=== PATIENT | male | born 1950 | race Caucasian/White ===

== ENCOUNTER 2021-03-19 19:31 | Emergency (ER) | payer MEDICARE, SELFPAY ==
[2021-03-19 19:40] VITALS: BP 135/85; PULSE 85; RESP 19; TEMP 36.8; O2SAT 96; BMI 29.4
[2021-03-19 19:42] VITALS: PULSE 67; RESP 18; O2SAT 98
--- NOTE | 2021-03-19 19:46 | ED.GENADULT ---
HPI - General Adult General Chief complaint: Abdominal Pain Stated complaint: abdominal pain since this morning Time Seen by Provider: 03/19/21 19:41 Source: patient Mode of arrival: Ambulatory Limitations: no limitations History of Present Illness HPI narrative: Patient is a 70-year-old male who comes to the emergency department today for abdominal discomfort. He states the symptoms started this morning and has been present for most of the day. He had a bowel movement in this morning but this was before the abdominal pain started and has an anything since then. His had no problems urinating. Has had nausea and vomiting. He states that the vomiting does improve his symptoms somewhat but then it comes back again. He denies any fevers. Described the pain in his lower abdomen although his thought that maybe he was complaining of some upper abdominal pain at the start. He has had symptoms like this in the past and he thought maybe was his gallbladder but has never had it evaluated. Related Data Home Medications Medication Instructions Recorded Confirmed [VITAMINS] #0 12/29/17 07/21/18 Previous Rx's Medication Instructions Recorded diazepam [Valium] 5 mg PO Q6HP PRN #14 tab 12/29/17 Allergies Allergy/AdvReac Type Severity Reaction Status Date / Time No Known Drug Allergies Allergy Verified 03/19/21 19:45 Review of Systems Constitutional Constitutional: Denies fever(s) Cardiovascular Cardiovascular: Denies chest pain and Denies dyspnea Respiratory Respiratory: Denies dyspnea Gastrointestinal Gastrointestinal: Reports abdominal pain, Denies change in bowel habits, Reports nausea and Reports vomiting Genitourinary Genitourinary: Denies dysuria Genitourinary: Denies dysuria Musculoskeletal Musculoskeletal: Reports system reviewed and no additional complaints, except as documented Integumentary/Breasts Skin/Breast: Reports system reviewed and no additional complaints, except as documented Neurologic Neurologic: Reports system reviewed and no additional complaints, except as documented Endocrine Endocrine: Reports system reviewed and no additional complaints, except as documented Hematologic/Lymphatic On Anticoagulants: No Allergic/Immunologic Allergic/Immunologic: Reports system reviewed and no additional complaints, except as documented Patient History Medical History Elevated PSA Elevated PSA, less than 10 ng/ml Hearing deficit Low testosterone Muscle cramps Surgical History History of carpal tunnel release (~2016) Family History Mother Diabetes mellitus Heart disease Brother Heart disease Brother Stroke Substance abuse Alcohol abuse Sister Carotid artery disease Arthritis Grandmother Diabetes mellitus Daughter Myasthenia gravis Social History marital status: number of children: 4 household members: spouse lives independently: Yes caregiver/support person: No housing: house pets and animals: No education level: college (2 years) occupational status: employed (Will be quitting at end of month.) current occupational exposures/hazards: Yes rani/yazidi: Congregational travel history: over 6 months ago ([place], [place]) 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) Smoking Status: Never smoker Tobacco: How many years used: 0 quit status: quit date established (Never Started) second hand exposure: No alcohol intake: never substance use type: does not use Smoking Status: Never smoker Exam Initial Vital Signs Initial Vital Signs: Vital Signs Temperature 98.3 F 03/19/21 19:40 Pulse Rate 85 03/19/21 19:40 Respiratory Rate 19 03/19/21 19:40 Blood Pressure 135/85 03/19/21 19:40 Pulse Oximetry 96 03/19/21 19:40 Const General: cooperative and comfortable Limitations: mental status not altered HENMT Head: normal to inspection and normocephalic Resp Effort & Inspection: normal respiratory effort Auscultation: clear to auscultation bilaterally Cardio Rate: regular rate Rhythm: regular rhythm GI Inspection: non-distended Palpation: soft and tender (Generalized abdominal pain) Back/Spine/Pelvis Back: No CVA tenderness Skin Lesions: no lesions Rashes: no rashes Neuro General: patient alert, patient awake and patient oriented x3 Cognition: normal cognition Speech: speech normal Extrem General: normal to inspection and capillary refill normal Psych Appearance: grossly normal and well kempt Scores GCS Jessy coma scale eye opening: Spontaneous Arden coma scale verbal response: Orientated Arden coma scale motor response: Obey commands Arden coma scale total score: 15 Course Orders Ordered: ED Orders 03/19/21 19:45 Acetaminophen Stat Complete Blood Count AUTO DIFF Stat Comprehensive Metabolic Panel Stat Ethanol (ETOH) Stat Gamma Glutamyl Transpeptidase Stat Hepatitis Acute Panel Stat Lipase Stat 03/19/21 19:46 CT abdomen pelvis w con Stat 03/19/21 21:30 US abdomen limited Stat 03/20/21 01:20 COVID19 -Nasal swab/Pre-Proc Stat Sodium Chloride (Normal Saline 0.9%) 1,000 mls @ 150 mls/hr IV CONT ROSEMARIE Last Admin: 03/20/21 02:51 Dose: 150 mls/hr Documented by: VALE Discontinued Medications Sodium Chloride (Normal Saline 0.9%) 1,000 mls @ 1,000 mls/hr IV BOLUS ONE Stop: 03/19/21 20:41 Last Infusion: 03/19/21 20:50 Dose: 0 mls/hr Documented by: Admin: 03/19/21 19:56 Dose: 1,000 mls/hr Documented by: YADIRA Morphine Sulfate (Morphine 4 Mg/Ml Inj) 4 mg IV NOW ONE Stop: 03/19/21 20:31 Last Admin: 03/19/21 20:35 Dose: 4 mg Documented by: VALE Ondansetron HCl (Ondansetron 4 Mg/2 Ml Inj) 4 mg IV NOW ONE Stop: 03/19/21 20:31 Last Admin: 03/19/21 20:37 Dose: 4 mg Documented by: VALE Vital Signs Vital signs: Vital Signs - 8 hr 03/19/21 20:00 03/20/21 03:47 Pulse Rate 66 92 H Respiratory Rate 22 Blood Pressure 143/70 H 150/77 H Pulse Oximetry 99 96 Medical Decision Making Lab Data Lab results reviewed: Yes I reviewed the patient's lab results. Result diagrams: 03/19/21 19:45 03/19/21 19:45 Labs: Lab Results 03/19/21 03/19/21 03/19/21 Range/Units 19:45 19:45 19:45 WBC 11.1 H (4.5-11.0) X10^3/uL RBC 4.98 (4.5-5.9) X10^6/uL Hgb 16.0 (13.5-17.5) g/dL Hct 46.4 (41-53) % MCV 93.3 (80-100) fL MCH 32.2 (26-34) PG MCHC 34.5 (30-36) % RDW 13.5 (11.6-14.8) % Plt Count 213 (150-400) X10^3/uL Neut % (Auto) 91.1 H (50-75) % Lymph % (Auto) 4.6 L (25-40) % Nicollet % (Auto) 4.1 (3-14) % Eos % (Auto) 0.0 L (2-4) % Baso % (Auto) 0.2 (0-2) % Neut # (Auto) 48473 H (5598-9634) /uL Lymph # (Auto) 500 L (9399-0304) /uL Nicollet # (Auto) 500 (0-900) /uL Eos # (Auto) 0 (0-450) /uL Baso # (Auto) 0 (0-100) /uL Sodium 138 (137-145) mmol/L Potassium 4.0 (3.4-5.1) mmol/L Chloride 104 (98-107) mmol/L Carbon Dioxide 25 (22-32) mmol/L BUN 13 (9-20) mg/dL Creatinine 0.90 (0.66-1.25) mg/dL Estimated GFR > 60.0 (>60) mL/min BUN/Creatinine Ratio 14.4 (6-22) Glucose 224 H (80-110) mg/dL Calcium 9.1 (8.4-10.2) mg/dL Total Bilirubin 2.6 H (0.2-1.3) mg/dL GGT 299 H (15-73) U/L AST 551 H (17-59) IU/L ALT 430 H (<50) IU/L Alkaline Phosphatase 132 H (38-126) U/L Total Protein 6.7 (6.3-8.2) g/dL Albumin 4.2 (3.5-5.0) g/dL Globulin 2.5 (1.7-4.1) g/dL Albumin/Globulin Ratio 1.7 (1.0-2.8) Lipase 39952 H (23-300) U/L Acetaminophen (10-30) ug/mL Ethyl Alcohol ( - 10) mg/dL SARS-CoV-2 (PCR) (Negative) 03/19/21 03/20/21 Range/Units 19:45 01:20 WBC (4.5-11.0) X10^3/uL RBC (4.5-5.9) X10^6/uL Hgb (13.5-17.5) g/dL Hct (41-53) % MCV (80-100) fL MCH (26-34) PG MCHC (30-36) % RDW (11.6-14.8) % Plt Count (150-400) X10^3/uL Neut % (Auto) (50-75) % Lymph % (Auto) (25-40) % Nicollet % (Auto) (3-14) % Eos % (Auto) (2-4) % Baso % (Auto) (0-2) % Neut # (Auto) (4597-1518) /uL Lymph # (Auto) (2453-5108) /uL Nicollet # (Auto) (0-900) /uL Eos # (Auto) (0-450) /uL Baso # (Auto) (0-100) /uL Sodium (137-145) mmol/L Potassium (3.4-5.1) mmol/L Chloride (98-107) mmol/L Carbon Dioxide (22-32) mmol/L BUN (9-20) mg/dL Creatinine (0.66-1.25) mg/dL Estimated GFR (>60) mL/min BUN/Creatinine Ratio (6-22) Glucose (80-110) mg/dL Calcium (8.4-10.2) mg/dL Total Bilirubin (0.2-1.3) mg/dL GGT (15-73) U/L AST (17-59) IU/L ALT (<50) IU/L Alkaline Phosphatase (38-126) U/L Total Protein (6.3-8.2) g/dL Albumin (3.5-5.0) g/dL Globulin (1.7-4.1) g/dL Albumin/Globulin Ratio (1.0-2.8) Lipase (23-300) U/L Acetaminophen < 10 L (10-30) ug/mL Ethyl Alcohol < 10 ( - 10) mg/dL SARS-CoV-2 (PCR) Negative (Negative) Imaging Data CT scan - abdomen/pelvis: Radiologist's Impression: [address] [id number] Scan ReportSigned Patient: Andres ChowGenaro EMR#: [id number]: 8Acct:[id number]/Sex: 70 / MDate of Service: 03/19/21Loc: EDAccession Number: [id number] Procedure: CT abdomen pelvis w con Ordering Provider: Lamin Wesley D.O. PROCEDURE: CT ABDOMEN PELVIS W CON INDICATIONS: Lower abdominal discomfort with nausea and vomiting TECHNIQUE: After the administration of intravenous contrast, 5 mm thick sections acquired from the diaphragm to the symphysis. 5 mm coronal and sagittal reformats were acquired. For radiation dose reduction, the following was used: automated exposure control, adjustment of mA and/or kV according to patient size. COMPARISON: None. FINDINGS: Image quality: Excellent. ABDOMEN: Lung bases: There is mild dependent atelectasis bilaterally. Heart size is normal. Solid organs: Evaluation of the liver demonstrates no focal hepatic lesions. There are slightly hyperattenuating gallstones in the gallbladder without wall thickening or pericholecystic fluid. Biliary system is non-dilated. The spleen is normal in size. No adrenal nodules. Kidneys demonstrate no hydronephrosis. There is peripancreatic fat stranding and fluid along the course of the pancreas consistent with acute pancreatitis. No loculated fluid collections. No areas of hypoenhancement to suggest necrosis. The pancreatic duct is nondistended. Peritoneum and bowel: Bowel loops demonstrate normal wall thickness and caliber. There is colonic diverticulosis without acute diverticulitis. No free fluid or air. Nodes and vessels: No retroperitoneal or mesenteric adenopathy by size criteria. Aorta and inferior vena cava are normal in size. Miscellaneous: No ventral hernias. PELVIS: Genitourinary: Bladder wall thickness is normal. There is heterogeneous enlargement of the prostate. Miscellaneous: No inguinal hernias or adenopathy. Bones: No suspicious bony lesions. No vertebral body compression fractures. IMPRESSION: 1. Peripancreatic fat stranding and fluid consistent with acute pancreatitis. No loculated peripancreatic fluid collections or evidence of necrosis. 2. Cholelithiasis without CT evidence of cholecystitis. No biliary ductal dilatation. Dictated by: Valentin Musa M.D. on 03/19/2021 at 21:41 Approved by: Valentin Musa M.D. on 03/19/2021 at 21:45 US - abdomen: Radiologist's Impression: Cholelithiasis with borderline wall thickening, question cholecystitis. Gallbladder wall thickening at 3.7 mm Common bile duct 4.3 mm Positive Forrester sign ECG Data Attestation: I personally reviewed and interpreted this ECG as follows: MDM Narrative Medical decision making narrative: Patient does have a relatively benign abdominal exam and seems to have diffuse abdominal tenderness. His labs except he does have an elevation in his bilirubin and LFTs. CT scan was completed prior to the result of his lipase. The CT scan is consistent with pancreatitis in the lipase is consistent with pancreatitis as well. Given his elevation in his LFTs and bilirubin and his pancreatitis there was concern gallstone pancreatitis. Right upper quadrant ultrasound was ordered which does show cholelithiasis however no dilation of the common bile duct and mildly thickened gallbladder wall but no pericholecystic fluid. He is only required 1 dose of pain medication up to this point. He denies alcohol use. Given his clinical presentation and his labs and radiologic studies today the most likely source of his pancreatitis is gallbladder. I discussed the case with Dr. Yanez from [facility] who accepts the patient in transfer. I feel the patient does need transfer because his potential need for ERCP he is high although not definitive at this point. We are unable to provide that procedure here at this hospital. I did discuss the transfer with the patient. I informed them that he potentially may not need an ERCP however he would be at a facility that would be able to obtain it if his he needed to have this performed. He expressed understanding of this. Patient is stable for transport. Discharge Plan Departure Patient Disposition: [facility] Clinical Impression: Acute pancreatitis, Cholelithiasis Prescriptions: No Action [VITAMINS] Qty: 0 RF: 0 diazepam [Valium] 5 MG tablet 5 mg PO Q6HP PRNQty: 14 RF: 0
[2021-03-19 19:50] VITALS: BP 140/76; PULSE 71; RESP 21; O2SAT 98
[2021-03-19] MEDS: SODIUM CHLORIDE 0.9% 1,000 ML 1000 ML IV (19:56)
[2021-03-19 20:00] VITALS: BP 143/70; PULSE 66; RESP 22; O2SAT 99
[2021-03-19 20:08] LABS: Add Manual Diff / Slide Review NO; Basophils Absolute Auto 0 /uL (0-100); Basophils Percent Auto 0.2 % (0-2); Eosinophils Absolute Auto 0 /uL (0-450); Hematocrit 46.4 % (41-53); Lymphocytes Absolute Auto 500 /uL (1100-4500); Lymphocytes Percent Auto 4.6 % (25-40); Mean Corpuscular HGB Conc 34.5 % (30-36); Mean Corpuscular Hemoglobin 32.2 PG (26-34); Mean Corpuscular Volume 93.3 fL (80-100); Monocytes Absolute Auto 500 /uL (0-900); Monocytes Percent Auto 4.1 % (3-14); Neutrophils Absolute Auto 10100 /uL (1500-7000); Neutrophils Percent Auto 91.1 % (50-75); Platelet Count 213 X10^3/uL (150-400); Red Blood Cell Count 4.98 X10^6/uL (4.5-5.9); Red Cell Distribution Width 13.5 % (11.6-14.8); White Blood Cell Count 11.1 X10^3/uL (4.5-11.0)
[2021-03-19 20:10] LABS: Alanine Aminotransferase 430 IU/L (<50); Albumin 4.2 g/dL (3.5-5.0); Albumin Globulin Ratio 1.7 (1.0-2.8); Alkaline Phosphatase 132 U/L (38-126); Aspartate Aminotransferase 551 IU/L (17-59); BUN Creatinine Ratio 14.4 (6-22); Bilirubin Total 2.6 mg/dL (0.2-1.3); Blood Urea Nitrogen 13 mg/dL (9-20); Calcium 9.1 mg/dL (8.4-10.2); Carbon Dioxide 25 mmol/L (22-32); Chloride 104 mmol/L (98-107); Estimated Glomerular Filt Rate > 60.0 mL/min (>60); Globulin 2.5 g/dL (1.7-4.1); Glucose 224 mg/dL (80-110); HEMOLYSIS < 15 (0-50); Sodium 138 mmol/L (137-145); Total Protein 6.7 g/dL (6.3-8.2)
[2021-03-19] MEDS: MORPHINE 4 MG/ML INJ IV (20:35)
[2021-03-19] MEDS: ONDANSETRON 4 MG/2 ML INJ IV (20:37)
[2021-03-19 21:27] LABS: Lipase 30549 U/L (23-300)
--- NOTE | 2021-03-19 21:30 | DI.US.S_ITS ---
PROCEDURE: US ABDOMEN LIMITED INDICATIONS: RUQ PAIN TECHNIQUE: Real-time focused scanning was performed of the abdomen, with image documentation. COMPARISON: [facility], CT, CT ABDOMEN PELVIS W CON, 03/19/2021, 20:20. FINDINGS: Liver is normal in size and homogeneous echotexture. Multiple gallstones noted in the gallbladder. Largest gallstone measures 1.7 centimeters. Gallbladder wall is slightly thickened measuring 3.7 millimeters. No pericholecystic fluid. Positive sonographic Forrester sign noted. Biliary tree is nondilated. Common bile duct measures 4.3 millimeters. Head and body pancreas is sonographically normal. Tail of the pancreas is obscured by bowel gas and cannot be evaluated. IMPRESSION: Cholelithiasis with slightly thickened gallbladder wall and positive sonographic Forrester sign. Acute cholecystitis cannot be completely excluded. Please correlate with clinical data. Dictated by: Chery Kemp MD, PhD on 03/20/2021 at 8:30 Approved by: Chery Kemp MD, PhD on 03/20/2021 at 8:33
[2021-03-19 22:07] LABS: Acetaminophen < 10 ug/mL (10-30); Ethanol (ETOH) < 10 mg/dL; Gamma Glutamyl Transpeptidase 299 U/L (15-73)
[2021-03-20 01:52] LABS: COVID19 -Nasal RAPID Negative (Negative)
[2021-03-20] MEDS: SODIUM CHLORIDE 0.9% 1,000 ML 150 ML IV (02:51)
[2021-03-20 03:47] VITALS: BP 150/77; PULSE 92; O2SAT 96
[2021-03-21 01:37] LABS: HBsAg Screen Negative (Negative); Hepatitis A Antibody IgM Negative (Negative); Hepatitis B Core Antibody IgM Negative (Negative); Hepatitis C Antibody <0.1 s/co ratio (0.0-0.9)
== END 2021-03-20 04:03 | disposition short-term general hospital (02) ==
PROVIDERS: Emergency Provider Emergency Medicine
DX: K85.90 Acute pancreatitis without necrosis or infection, unspecified (principal); K80.20 Calculus of gallbladder without cholecystitis without obstruction; R11.2 Nausea with vomiting, unspecified; Z20.822 Contact with and (suspected) exposure to COVID-19
CPT/HCPCS: 36415; 74177; 76705; 80053; 80074; 80320; 80329; 82977; 83690; 85025; 87635; 96361; 96374; 96375; 99284; C9803; G0480; J2270; J2405; Q9967